=== PATIENT | female | born 1985 | race Caucasian/White ===

== ENCOUNTER 2018-12-13 15:30 | Emergency (ER) | payer SELFPAY ==
[~2018-12-13] VITALS: Ht 157.5 cm; Wt 68.2 kg
[2018-12-13 16:55] VITALS: BP 116/61
== END 2018-12-13 16:55 | disposition home or self-care (01) | DRG 563 ==
LOC: ED 15:30
DX: S93.601A Unspecified sprain of right foot, initial encounter (principal); I10 Essential (primary) hypertension; W17.2XXA Fall into hole, initial encounter; Y92.830 Public park as the place of occurrence of the external cause